=== PATIENT | male | born 1990 ===

== ENCOUNTER 2020-10-07 19:51 | Emergency (ER) | payer OTHER ==
[~2020-10-07] VITALS: Ht 172.7 cm; Wt 80.0 kg
--- NOTE | 2020-10-07 19:51 | NUR ---
MD Rivas performing MSE on patient.
--- NOTE | 2020-10-07 20:05 | NUR ---
Patient uncooperative, disorientated, combative, and aggressive. MD Rivas notifed. Soft restraints initiated.
--- NOTE | 2020-10-07 20:05 | NUR ---
Patient is being checked on every 15 minutes for safety regarding restraints from this point on until discontinuation of restraints. Any adverse events will be noted.
--- NOTE | 2020-10-07 20:09 | NUR ---
[employer] in room to check out contraband of patient.
--- NOTE | 2020-10-07 22:00 | NUR ---
Patient refused to have his blood drawn. MD Rivas made aware.
--- NOTE | 2020-10-07 22:00 | NUR ---
Medical restraints removed. Patient is now A&Ox4, cooperative. Sleeping on bed, eyes closed.
--- NOTE | 2020-10-07 22:00 | NUR ---
Patient refused to give urine as well, MD Pierce made aware.
--- NOTE | 2020-10-07 22:25 | NUR ---
Girlfriend of patient called, patient consented to having the girlfriend pick him up from the emergency department.
--- NOTE | 2020-10-07 22:40 | NUR ---
Patient is resting on bed, eyes closed. No acute distress is noted at this time.
[2020-10-07 22:50] VITALS: BP 110/72
--- NOTE | 2020-10-07 22:50 | NUR ---
Patient discharged to home in stable condition. Written and verbal after care instructions given. Patient verbalizes understanding of instructions. Stressed follow up or return to ER for worsening s/s. Patient ambulates with steady gait, V/S stable, left with all personal belongings that were not taken by [employer].
== END 2020-10-07 22:50 | disposition home or self-care (01) ==
LOC: ER 19:51
DX: T65.91XA Toxic effect of unspecified substance, accidental (unintentional), initial encounter (principal); Y92.89 Other specified places as the place of occurrence of the external cause
CPT/HCPCS: A4663